=== PATIENT | male | born 1950 | race Asian ===

== ENCOUNTER 2018-02-12 08:48 | Outpatient (CLI) | payer OTHER ==
[2018-02-12 09:18] LABS: PLATELET COUNT 220 K/uL (142-355)
[2018-02-12 09:49] LABS: POTASSIUM 3.9 mmol/L (3.6-5.2)
== END 2018-02-12 20:31 | disposition home or self-care (01) ==
LOC: LABW 08:48
PROVIDERS: Internal Medicine
DX: I10 Essential (primary) hypertension (principal); Z12.5 Encounter for screening for malignant neoplasm of prostate
CPT/HCPCS: 36415; 80053; 80061; 81000; 84153; 84439; 84443; 85027

== ENCOUNTER 2018-02-24 08:03 | Outpatient (CLI) | payer OTHER | END 2018-02-24 22:59 | disposition home or self-care (01) | LOC: US 08:03 | DX: Z13.6 Encounter for screening for cardiovascular disorders (principal); Z13.9 Encounter for screening, unspecified; Z72.0 Tobacco use; J43.9 Emphysema, unspecified ==

== ENCOUNTER 2020-09-04 11:41 | Outpatient (CLI) | payer OTHER | END 2020-09-04 14:00 | disposition home or self-care (01) | LOC: CT 11:41 | PROVIDERS: ATTEND Internal Medicine | DX: Z12.2 Encounter for screening for malignant neoplasm of respiratory organs (principal); Z87.891 Personal history of nicotine dependence ==

== ENCOUNTER 2021-10-22 14:45 | Outpatient (CLI) | payer OTHER | END 2021-10-22 20:22 | disposition home or self-care (01) | LOC: RAD 14:45 | PROVIDERS: ATTEND Internal Medicine | DX: M54.41 Lumbago with sciatica, right side (principal) ==

== ENCOUNTER 2022-01-29 08:26 | Outpatient (CLI) | payer OTHER | END 2022-01-29 23:56 | disposition home or self-care (01) | LOC: US 08:26 | PROVIDERS: ATTEND Internal Medicine | DX: M54.59 Other low back pain (principal); Z12.89 Encounter for screening for malignant neoplasm of other sites ==